=== PATIENT | male | born 1985 | race Asian ===

== ENCOUNTER 2020-07-12 11:06 | Emergency (ER) | payer SELFPAY ==
[~2020-07-12] VITALS: Ht 180.3 cm; Wt 74.8 kg
--- NOTE | 2020-07-12 11:14 | NUR ---
Margo meyer in [facility] - 07/12/20 at [address] MARTINEZ AT BEDSIDE
--- NOTE | 2020-07-12 11:18 | NUR ---
CAME IN FOR L SIDED RIB AREA/FLANK PAIN, DYSURIA, WORSENING X 1 MONTH, TO ER BED 11, HOOKED TO MONITOR, CHANGED TO [facility]OSP [facility], AWAITING MD GONZALEZ
--- NOTE | 2020-07-12 11:24 | NUR ---
DR MARTINEZ AT BEDSIDE
[2020-07-12 11:47] LABS: BILIRUBIN,URINE Negative (NEGATIVE); COLOR,URINE YELLOW (YELLOW); LEUKOCYTE ESTERASE ,URINE Negative (NEGATIVE); NITRITE, URINE Negative (NEGATIVE); PH,URINE 5.5 (5.0-8.0); PROTEIN,URINE Negative (NEGATIVE); UGLUCOSE Negative (NEGATIVE); UROBILINOGEN,URINE 0.2 EU/dL (0.2)
[2020-07-12 11:49] LABS: BASOPHILS # (AUTO) 0.1 /CMM (0.0-0.2); BASOPHILS % (AUTO) 1.3 % (0.0-2.0); EOSINOPHILS % (AUTO) 2.4 % (0.0-6.0); HEMATOCRIT 50 % (39-51); HEMOGLOBIN 16.6 g/dL (13.5-17.5); LYMPHOCYTES % (AUTO) 31.8 % (20.0-44.0); MEAN CORPUSCULAR HGB CONC 34 g/dl (31.0-36.0); MEAN CORPUSCULAR VOLUME 93 fL (80-96); MONOCYTES # (AUTO) 0.4 /CMM (0.1-1.30); MONOCYTES % (AUTO) 6.1 % (2.0-12.0); NEUTROPHILS # (AUTO) 3.7 /CMM (1.8-8.9); NEUTROPHILS % (AUTO) 58.4 % (43.0-81.0); PLATELET COUNT (AUTO) 295 /CMM (150-450); RED BLOOD CELL COUNT(AUTO) 5.34 MIL/uL (4.5-6.0); WHITE BLOOD COUNT (AUTO) 6.3 K/uL (4.3-11.0)
[2020-07-12 12:10] LABS: CALCIUM, SERUM 8.6 mg/dL (8.5-10.1); CREATININE 0.7 mg/dL (0.6-1.3); POTASSIUM 4.5 mmol/L (3.5-5.1)
[2020-07-12 12:30] LABS: ALBUMIN 4.1 g/dL (3.4-5.0); BILIRUBIN,DIRECT 0.1 mg/dL (0.0-0.2); BILIRUBIN,TOTAL 0.3 mg/dL (0.2-1.0); TOTAL PROTEIN, SERUM 7.4 g/dL (6.4-8.2)
[2020-07-12] MEDS ORDERED: CARI350T PO (13:06)
--- NOTE | 2020-07-12 13:56 | NUR ---
PATIENT DECIDED TO LEAVE W/O WAITING FOR LIPASE RESULT. PATIENT STATES HE WILL CALL OR COME BACK FOR RESULTS. MADE AWARE. SAYS "IT'S OK".
[2020-07-12 13:59] VITALS: BP 146/102
--- NOTE | 2020-07-12 13:59 | NUR ---
Patient discharged to home in stable condition. Written and verbal after care instructions given. Patient verbalizes understanding of instruction.
== END 2020-07-12 14:00 | disposition home or self-care (01) ==
LOC: ER 11:09
DX: R10.12 Left upper quadrant pain (principal); R30.0 Dysuria
CPT/HCPCS: 36415; 71250-TC; 80048-TC; 80076-TC; 83690-TC; 85025-TC

== ENCOUNTER 2021-03-17 10:18 | Emergency (ER) | payer OTHER ==
[~2021-03-17] VITALS: Ht 182.9 cm; Wt 78.0 kg
[~2021-03-17 10:18] MED LIST: CARI350T PO
[2021-03-17] MEDS ORDERED: KETOROLAC TROMETHAMINE INJ 30 MG/ML VIAL ONE (10:33)
--- NOTE | 2021-03-17 10:37 | NUR ---
Patient came in to the er c/o left shoulder since last night. On room air, connected to the monitor adn pulse ox. Kept comfortable, will continue to monitor accordingly.
--- NOTE | 2021-03-17 10:43 | NUR ---
monster at bedside for x-ray.
[2021-03-17] MEDS ORDERED: KETOROLAC TROMETHAMINE INJ 30 MG/ML VIAL IV ONE (11:00)
[2021-03-17] MEDS ORDERED: NAPR-1009 PO (11:31)
[2021-03-17] MEDS ORDERED: ACET1TAB23 PO (11:31)
[2021-03-17 11:44] VITALS: BP 140/87
--- NOTE | 2021-03-17 11:44 | NUR ---
Patient discharged to home in stable condition. Written and verbal after care instructions given. Patient verbalizes understanding of instruction.IV removed. Catheter intact and site benign. Pressure and 4x4 applied to site. No bleeding noted.
== END 2021-03-17 11:44 | disposition home or self-care (01) ==
LOC: ER 10:21
DX: S22.32XA Fracture of one rib, left side, initial encounter for closed fracture (principal); S40.012A Contusion of left shoulder, initial encounter; W05.1XXA Fall from non-moving nonmotorized scooter, initial encounter; Y93.89 Activity, other specified; Y92.89 Other specified places as the place of occurrence of the external cause; Y99.8 Other external cause status
CPT/HCPCS: 73030; 96374; 99283; J1885